=== PATIENT | male | born 1980 | race Caucasian/White ===

== ENCOUNTER 2023-04-22 14:36 | Outpatient (CLI) | payer OTHER, MEDICAID, SELFPAY ==
[2023-04-22 15:25] LABS: Sperm Present Sperm Not Present
== END 2023-04-22 14:37 | disposition home or self-care (01) ==
PROVIDERS: PCP Family Medicine; Visit Provider Family Medicine
DX: Z48.816 Encounter for surgical aftercare following surgery on the genitourinary system (principal); Z98.52 Vasectomy status
CPT/HCPCS: 89310